=== PATIENT | female | born 1955 | race African-American/Black ===

== ENCOUNTER 2016-12-29 13:33 | Inpatient (IN) | payer MEDICARE, OTHER ==
--- NOTE | ~2016-12-29 | EKG ---
PATIENT: JACOBO JOSHI UNIT #: [id number] Ventricular Rate: 82 BPM Atrial Rate: 82 BPM P-R Interval: 164 ms QRS Duration: 100 ms Q-T Interval: 432 ms QTC Calculation(Bezet): 504 ms P [place]: 34 degrees Calculated R [place]: 30 degrees Calculated T [place]: 7 degrees Diagnosis Line: Normal sinus rhythm Diagnosis Line: Prolonged QT Diagnosis Line: Abnormal ECG Diagnosis Line: When compared with ECG of 30-DEC-2016 07:12, Diagnosis Line: (unconfirmed) Diagnosis Line: No significant change was found Diagnosis Line: Confirmed by TAYE JACOME MD ([id number]) on 12/31/2016 Diagnosis Line: 7:16:25 AM INTERPRETING MD: AYAZ DENT
--- NOTE | ~2016-12-29 | CO ---
Unit #: [id number] #: [id number] Patient: JACOBO CHAVEZ [id number] [facility]. [place], [place] [address] [id number] I MR#: [id number] NAME: JACOBO CHAVEZ ROOM: [facility] Age: 61 Sex: F Admission Date: 12/29/2016 : 1955 Attending Physician: Javier Austin M.D. Primary Care Physician: Norah Ramirez M.D. Consultation Date: 12/30/2016 CONSULTATION REPORT REASON FOR CONSULTATION Renal failure. Thank you very much for asking us to see this patient in consultation. HISTORY OF PRESENT ILLNESS Ms. Jacobo Chavez is a 61-year-old female, who was at dialysis yesterday, and apparently about an hour into dialysis subsequently started having worsening apparently chest pain and subsequently became unresponsive, arrested, was shocked and found to have V-fib, intubated, presented to the emergency room here, where she subsequently is now in the intensive care unit. Since admission, the patient was weaned off pressors. She was noted to have an increased troponin up to 30.54 today. She is now extubated, although she is alert. She started having some intermittent chest pain again this morning. No significant shortness of breath. No nausea or vomiting. According to the note, she was having some chest pain and back pain at home and took intermittent nitroglycerin. PAST MEDICAL HISTORY History of end-stage renal disease, on hemodialysis every Thursday, Thursday, and Thursday. History of atherosclerotic coronary artery disease, status post coronary artery bypass graft in the past. History of COPD, history of GI bleed, history of restless legs syndrome, history of depression, status post cholecystectomy. SOCIAL HISTORY She is . Occasional alcohol. No smoking. ALLERGIES Include sulfa, codeine, amlodipine, atorvastatin, montelukast, and latex. MEDICATIONS Her medicines include Zosyn, propofol, amiodarone, tobramycin, vancomycin, Crestor, aspirin, Plavix, Zosyn, and Protonix. REVIEW OF SYSTEMS Currently, she is not having any headaches or dizziness, visual problems, sinus problems. She is not having any cough, although again recently just extubated. She is having some intermittent left chest heaviness, but no shortness of breath unless the patient have very very deep breath. She denies any severe abdominal pain currently. FAMILY HISTORY Unit #: [id number] #: [id number] Patient: RUTH CHAVEZILA Noncontributory. PHYSICAL EXAMINATION VITAL SIGNS: T-max is 99.6, pulse 51 to 73, blood pressure 205/73, last check was 150/67. She had 1571 in and out 200 through an NG tube initially. HEENT: She is normocephalic and atraumatic. Pupils are equal, round, and reactive to light. Extraocular muscles are intact. Hearing appears to be normal. Mouth is clear. No erythema. No exudate. NECK: Supple. No adenopathy. CARDIAC: She appears to have a regular rhythm without a rub. Currently, no S3 or S4. LUNGS: Sound fairly clear anteriorly and laterally. ABDOMEN: Obese, bowel sounds positive, nontender, soft. EXTREMITIES: She has no significant lower extremity swelling. She has a fistula in her left upper arm with a good thrill. : Deferred. NEURO: She appears to be alert now and is able to move all extremities. DIAGNOSTIC STUDIES LABORATORY RESULTS: Last check showed a pH of 7.471, pCO2 of 34, pO2 of 193 on 60% that was prior to extubation. Sodium is 133 this morning, potassium 4.4, chloride is 95, bicarb is 23, BUN 51, creatinine 9.6, glucose of 110, calcium is 8.5, phosphorus 5.9, magnesium is 2, albumin is 2.9. Liver function tests are elevated. CPK was 754 this morning. Troponin was up to 30.54 up from 10.16 yesterday. Hemoglobin 10.6, white count 8800, and platelets 166,000. IMAGING STUDIES: CT scan of the abdomen and pelvis showed was negative except for questionable pneumonia and trace pleural effusion. ASSESSMENT AND PLAN 1. End-stage renal disease. The patient with normal dialysis on Thursday, Thursday, and Thursday, although only received partial dialysis yesterday due to her active chest pain and questionable acute myocardial infarction, I want to hold off dialysis unless she becomes more short of breath or hypoxic. I have discussed this with the nurse and asked them to give me a call certainly if she becomes more short of breath or hypoxic and then we will dialyze emergently. If not we will dialyze her tomorrow. After heart catheterization, we will follow electrolytes and volume status. 2. Anemia. Hemoglobin is stable. We will give EPO with dialysis. Follow trends. 3. Status post code with acute myocardial infarction per Cardiology. 4. History of chronic obstructive pulmonary disease. Dictated by..Evangelist Bonilla M.D. AVNI/irvin TD: 12/30/2016 23:51 JOB #: [id number] Unit #: [id number] #: [id number] Patient: JACOBO CHAVEZ CONSULTATION REPORT X Brandie Bonilla MD X CONSULTATION REPORT
--- NOTE | ~2016-12-29 | EKG ---
PATIENT: JACOBO JOSHI UNIT #: [id number] Ventricular Rate: 78 BPM Atrial Rate: 78 BPM P-R Interval: 160 ms QRS Duration: 96 ms Q-T Interval: 394 ms QTC Calculation(Bezet): 449 ms P [place]: 21 degrees Calculated R [place]: 15 degrees Calculated T [place]: 107 degrees Diagnosis Line: Normal sinus rhythm Diagnosis Line: Moderate voltage criteria for LVH, may be normal Diagnosis Line: variant Diagnosis Line: Cannot rule out Inferior infarct (cited on or Diagnosis Line: before 31-DEC-2016) Diagnosis Line: ST and T wave abnormality, consider lateral ischemia Diagnosis Line: Abnormal ECG Diagnosis Line: When compared with ECG of 01-JAN-2017 07:40, Diagnosis Line: (unconfirmed) Diagnosis Line: No significant change was found Diagnosis Line: Confirmed by TAYE JACOME MD ([id number]) on 01/02/2017 Diagnosis Line: 6:25:40 PM INTERPRETING MD: AYAZ DENT
--- NOTE | ~2016-12-29 | EKG ---
PATIENT: JACOBO JOSHI UNIT #: [id number] Ventricular Rate: 75 BPM Atrial Rate: 75 BPM P-R Interval: 164 ms QRS Duration: 100 ms Q-T Interval: 454 ms QTC Calculation(Bezet): 506 ms P [place]: 11 degrees Calculated R [place]: 36 degrees Calculated T [place]: 6 degrees Diagnosis Line: Normal sinus rhythm Diagnosis Line: , old Inferior infarct Diagnosis Line: Abnormal ECG Diagnosis Line: Diagnosis Line: Confirmed by TAYE JACOME MD ([id number]) on 12/31/2016 Diagnosis Line: 7:15:13 AM INTERPRETING MD: AYAZ DENT
--- NOTE | ~2016-12-29 | CR6 ---
[facility] A Service of [facility] & [facility] RADIOLOGY TEXT RESULTS PATIENT: JACOBO JOSHI [facility] 53 UNIT #: [id number] AGE: [address]: Javier Austin MD SEX: F ORDER DR: [id number] [facility] [address] [facility]. [place], [place] [address] [id number] I MR#: [id number] Acc #: [id number] NAME: JACOBO JOSHI : 1955 SEX: F STUDY DATE/TIME: 12/29/2016 12:15 UNIT: CEDOF ROOM: [id number] STUDY DESCRIPTION: CR Abdomen Portable Sng View Attending Physician: Amy Maldonado M.D. Ordering Physician: Malia Veronica M.D. Primary Care Physician: Norah Ramirez M.D. MEDICAL IMAGING REPORT This report is preliminary unless electronic signature is present EXAM Abdomen portable 12/29/2016 1215 hours HISTORY Dobbhoff tube placement. FINDINGS Supine view of the abdomen with a second view is performed at 1215 hours but not placed on the PACS System for review until 1338 hours. Reason for the delay is not indicated. There is an enteric tube present with tip directed leftward in the left upper quadrant in the proximal body of the stomach. Visualized bowel gas pattern is unremarkable. IMPRESSION The tip of the enteric tube is directed leftward in the left upper quadrant of the proximal stomach. Bowel gas pattern is unremarkable. Dictated by... Bing Gold M.D. THIS IS AN ELECTRONICALLY VERIFIED REPORT Bing Gold M.D. at 12/30/2016 9:26 AM GRAEME/leora TD: 12/29/2016 20:28 JOB #: [id number] MEDICAL IMAGING REPORT COPY
--- NOTE | ~2016-12-29 | EKG ---
PATIENT: JACOBO JOSHI UNIT #: [id number] Ventricular Rate: 52 BPM Atrial Rate: 52 BPM P-R Interval: 176 ms QRS Duration: 114 ms Q-T Interval: 554 ms QTC Calculation(Bezet): 515 ms P [place]: 15 degrees Calculated R [place]: 25 degrees Calculated T [place]: 48 degrees Diagnosis Line: Sinus bradycardia Diagnosis Line: Minimal voltage criteria for LVH, may be normal Diagnosis Line: variant Diagnosis Line: Possible Inferior infarct , age undetermined Diagnosis Line: Prolonged QT Diagnosis Line: Abnormal ECG Diagnosis Line: When compared with ECG of 29-DEC-2016 09:00, Diagnosis Line: (unconfirmed) Diagnosis Line: Significant changes have occurred Diagnosis Line: Confirmed by TAYE JACOME MD ([id number]) on 12/29/2016 Diagnosis Line: 7:36:11 PM INTERPRETING MD: AYAZ DENT
--- NOTE | ~2016-12-29 | EKG ---
PATIENT: JACOBO JOSHI UNIT #: [id number] Ventricular Rate: 80 BPM Atrial Rate: 80 BPM P-R Interval: 156 ms QRS Duration: 94 ms Q-T Interval: 430 ms QTC Calculation(Bezet): 495 ms P [place]: 31 degrees Calculated R [place]: 8 degrees Calculated T [place]: 66 degrees Diagnosis Line: Normal sinus rhythm Diagnosis Line: Moderate voltage criteria for LVH, may be normal Diagnosis Line: variant Diagnosis Line: Possible Inferior infarct , age undetermined Diagnosis Line: Abnormal ECG Diagnosis Line: When compared with ECG of 31-DEC-2016 05:49, Diagnosis Line: Borderline criteria for Inferior infarct are now Diagnosis Line: Present Diagnosis Line: T wave inversion now evident in Lateral leads Diagnosis Line: Confirmed by TAYE JACOME MD ([id number]) on 01/02/2017 Diagnosis Line: 6:24:45 PM INTERPRETING MD: AYAZ DENT
--- NOTE | ~2016-12-29 | EKG ---
PATIENT: JACOBO JOSHI UNIT #: [id number] Ventricular Rate: 77 BPM Atrial Rate: 77 BPM P-R Interval: 160 ms QRS Duration: 104 ms Q-T Interval: 438 ms QTC Calculation(Bezet): 495 ms P [place]: 28 degrees Calculated R [place]: 15 degrees Calculated T [place]: 22 degrees Diagnosis Line: Normal sinus rhythm Diagnosis Line: Minimal voltage criteria for LVH, may be normal Diagnosis Line: variant Diagnosis Line: , old Inferior infarct Diagnosis Line: Prolonged QT Diagnosis Line: Abnormal ECG Diagnosis Line: When compared with ECG of 30-DEC-2016 08:47, Diagnosis Line: (unconfirmed) Diagnosis Line: No significant change was found Diagnosis Line: Confirmed by TAYE JACOME MD ([id number]) on 12/31/2016 Diagnosis Line: 7:19:15 AM INTERPRETING MD: AYAZ DENT
--- NOTE | ~2016-12-29 | CR72 ---
[facility] A Service of [facility] & [facility] RADIOLOGY TEXT RESULTS PATIENT: JACOBO JOSHI LOCATION: [address] : [birth year] UNIT #: [id number] AGE: [address]: Javier Austin MD SEX: F ORDER DR: [id number] [facility] [address] [place], [place] [address] [id number] I MR#: [id number] Acc #: [id number] NAME: JACOBO JOSHI : 1955 SEX: F STUDY DATE/TIME: 12/30/2016 6:14 UNIT: [facility] ROOM: [facility] STUDY DESCRIPTION: CR Chest Single View Portable Attending Physician: Javier Austin M.D. Ordering Physician: Azra Rollins M.D. Primary Care Physician: Norah Ramirez M.D. MEDICAL IMAGING REPORT This report is preliminary unless electronic signature is present EXAM Portable chest 12/30/2016 HISTORY Respiratory failure, intubated, follow up infiltrates. FINDINGS The heart is enlarged but stable compared with 12/29/2016 status post median sternotomy. Nasogastric tube has been inserted with tip below the diaphragm not visualized. There is poor inspiratory result with atelectasis or infiltrate in the left lower lobe and discoid atelectasis right base. The upper lungs are clear. No pneumothorax. IMPRESSION Interval placement of nasogastric tube with tip below the diaphragm not visualized compared with 12/29/2016. No other change. Dictated by... Dawood Suarez M.D. THIS IS AN ELECTRONICALLY VERIFIED REPORT Dawood Suarez M.D. at 12/31/2016 2:24 PM KRT/sarai TD: 12/30/2016 11:15 JOB #: [id number] MEDICAL IMAGING REPORT COPY
--- NOTE | ~2016-12-29 | CT4 ---
[facility] A Service of [facility] & [facility] RADIOLOGY TEXT RESULTS PATIENT: JACOBO JOSHI LOCATION: [facility] CICCU3-14 : 53 UNIT #: [id number] AGE: [address]: Amy Maldonado MD SEX: F ORDER DR: [id number] [facility] [address] [place], [place] [address] [id number] I MR#: [id number] Acc #: [id number] NAME: JACOBO JOSHI : 1955 SEX: F STUDY DATE/TIME: 12/29/2016 12:54 UNIT: CEDOF ROOM: [id number] STUDY DESCRIPTION: CT Abd and Pelv Wo Cont Attending Physician: Amy Maldonado M.D. Ordering Physician: Malia Veronica M.D. Primary Care Physician: Norah Ramirez M.D. MEDICAL IMAGING REPORT This report is preliminary unless electronic signature is present EXAM Abdomen and pelvis CT, no contrast, 12/29/2016 INDICATIONS 61-year-old female resuscitated arrest from a dialysis center today, patient became unresponsive and coded at the dialysis site. TECHNIQUE Noncontrast abdomen and pelvis CT was performed. We have no comparisons. This CT exam was performed with one or more of the following radiation dose reduction techniques: Automatic exposure control, adjustment of mA and/or kV according to patient size, and iterative reconstruction. FINDINGS CT ABDOMEN: Included lung bases demonstrate a trace amount of pleural fluid bilaterally and bibasilar atelectasis or pneumonia, correlate clinically. The heart is enlarged. No pneumothorax. There is cardiomegaly and advanced atherosclerotic change of the coronary arteries. Coronary artery stents may also be present. There is an enteric tube in the stomach. Aorta demonstrates atherosclerotic change but no aneurysm. Spleen and adrenal glands are unremarkable, pancreas unremarkable, gallbladder surgically absent, liver unremarkable. Kidneys are atrophic and demonstrate cortical thinning. No hydronephrosis on either side. There is a benign cyst in the mid-pole left kidney. No adenopathy. CT PELVIS: Bladder decompressed by a George catheter. Uterus surgically absent. There are vascular calcifications in the pelvis, no adnexal mass or drainable fluid collection. There is colonic diverticulosis. No evidence of bowel obstruction, appendix normal. Inguinal canals are unremarkable. There is a right-sided femoral line. There is a tiny anterior abdominal wall hernia containing fat and omental vessels. Osseous structures demonstrate spinal degenerative changes. [facility] A Service of [facility] & [facility] RADIOLOGY TEXT RESULTS PATIENT: JACOBO JOSHI LOCATION: [facility] CICCU3-14 : 54 UNIT #: [id number] AGE: [address]: Amy Maldonado MD SEX: F ORDER DR: IMPRESSION 1. No clearly acute process in the abdomen or pelvis, no bowel obstruction, drainable fluid collection or focal area of inflammatory change and the appendix is normal. 2. Bibasilar atelectasis or pneumonia, trace to small effusions. 3. Surgical absence of the gallbladder. 4. Renal atrophy and an incidental benign left renal cyst. 5. Diverticulosis. Dictated by... Shiv Saenz M.D. THIS IS AN ELECTRONICALLY VERIFIED REPORT Shiv Saenz M.D. at 12/30/2016 7:19 AM JASMYNE/leora TD: 12/29/2016 20:03 JOB #: [id number] MEDICAL IMAGING REPORT COPY
--- NOTE | ~2016-12-29 | CT71 ---
[facility] A Service of [facility] RADIOLOGY TEXT RESULTS PATIENT: JACOBO JOSHI LOCATION: [address] : 53 UNIT #: [id number] AGE: [address]: Javier Austin MD SEX: F ORDER DR: [id number] [facility] [address] [place], [place] [address] [id number] I MR#: [id number] Acc #: [id number] NAME: JACOBO JOSHI : 1955 SEX: F STUDY DATE/TIME: 12/29/2016 12:47 UNIT: [facility] ROOM: [facility] STUDY DESCRIPTION: CT Head Wo Contrast Attending Physician: Amy Maldonado M.D. Ordering Physician: Malia Veronica M.D. Primary Care Physician: Norah Ramirez M.D. MEDICAL IMAGING REPORT This report is preliminary unless electronic signature is present EXAM Head CT no contrast 12/29/2016 INDICATIONS 61-year-old female, resuscitated arrest from dialysis center today, unresponsive and coded at dialysis. TECHNIQUE Noncontrast CT of the brain was performed. This CT exam was performed with one or more of the following radiation dose reduction techniques: Automatic exposure control, adjustment of mA and/or kV according to patient size, and iterative reconstruction. COMPARISON No comparisons. FINDINGS CT brain: Sulci and ventricles unremarkable. No midline shift. No evidence of acute intracranial hemorrhage. There is no mass, mass effect or edema to suggest acute infarct. No extraaxial fluid collections are present. Mild periventricular white matter and deep white matter changes are present and likely reflect sequela of chronic ischemic small vessel disease although they are technically nonspecific. Globes are intact. There is mild sphenoid and ethmoid sinus disease. No acute-appearing fracture. Atherosclerotic calcifications are present. Incidental note is made of what probably represents incomplete closure of the posterior ring of C1 as an anatomic variant. It is incompletely included in the field of view. IMPRESSION 1. No clearly acute intracranial process. No evidence of acute intracranial hemorrhage. [facility] A Service of [facility] RADIOLOGY TEXT RESULTS PATIENT: JACOBO JOSHI LOCATION: [facility]-14 : 53 UNIT #: [id number] AGE: [address]: Javier Austin MD SEX: F ORDER DR: 2. Imaging features suggestive of chronic ischemic small vessel disease. 3. Multifocal sinus disease. 4. Probable incomplete closure of the posterior ring of C1 as anatomic variant. This is incompletely evaluated or included in the field of view. Dictated by... Shiv Saenz M.D. THIS IS AN ELECTRONICALLY VERIFIED REPORT Shiv Saenz M.D. at 12/30/2016 4:43 PM Corrie TD: 12/30/2016 07:40 JOB #: [id number] MEDICAL IMAGING REPORT COPY
--- NOTE | ~2016-12-29 | CO ---
Unit #: [id number] #: [id number] Patient: JACOBO JOSHI [id number] [facility]. [place], [place] [address] [id number] I MR#: [id number] NAME: JACOBO JOSHI ROOM: [facility] Age: 61 Sex: F Admission Date: 12/29/2016 : 1955 Attending Physician: Javier Austin M.D. Primary Care Physician: Norah Ramirez M.D. Consultation Date: 12/29/2016 CONSULTATION REPORT REASON FOR CONSULTATION Elevated troponin. HISTORY OF PRESENT ILLNESS This is a 61-year-old female, who is known to , who has a history of myocardial infarction in 2012, where she underwent coronary artery bypass graft per at [facility]. She is known to have hypertension, hyperlipidemia, diabetes, and obesity as risk factors for ischemic heart disease. The patient is currently intubated and sedated and is unable to provide a history. All information has been obtained from the and daughter at bedside. According to the , the patient had chest pain last night, where she was up and down all night. This morning, she went to dialysis. After an hour of dialysis, the patient had ventricular fibrillation and was shocked three times with a return of spontaneous circulation. She was intubated in the process. She was brought to the emergency room for evaluation, where she was found to have no EKG changes to suggest an acute event; however, her troponin was elevated at 4.07 that is now peaked at 7.57. Chest x-ray was noted for pulmonary edema. She was hypotensive with blood pressure in the 50s and 60s and was started on Levophed drip. LFTs are elevated as well as lactic acid. She is on IV antibiotics. PAST MEDICAL HISTORY 1. 2D echocardiogram on 05/29/2015 per records from [facility], ejection fraction of 55% to 60% with mild aortic regurgitation, trace mitral regurgitation, and trace tricuspid regurgitation. 2. Coronary artery bypass graft x5 on 03/14/2013 per with RIVAS to the LAD, saphenous vein graft to the diagonal and saphenous vein graft to the first marginal branch, saphenous vein graft to the second marginal branch, and saphenous vein graft to the right coronary artery. 3. Hypertension. 4. Hyperlipidemia. 5. COPD. 6. Obstructive sleep apnea, wears CPAP. 7. End-stage renal disease, on hemodialysis. 8. GERD. 9. Gout. 10. Morbid obesity. PAST SURGICAL HISTORY 1. Coronary artery bypass graft in 2012. Unit #: [id number] #: [id number] Patient: JACOBO JOSHI 2. Cholecystectomy. 3. Hysterectomy. 4. Tubal ligation. 5. AV shunt placement. SOCIAL HISTORY The patient is . She has never smoked. No history of illicit drug or alcohol use. FAMILY HISTORY Positive for coronary artery disease in her mother. ALLERGIES Sulfa, latex, codeine, amlodipine, atorvastatin, and Singulair. HOME MEDICATIONS Losartan 100 mg daily, albuterol 1 puff q.4 hours p.r.n., Combivent unit dose one puff q.4 hours p.r.n., lactic acid 225 gtopically daily, Plavix 75 mg daily, Lexapro 20 mg daily, Pepcid 20 mg daily, Imdur 30 mg daily, Sensipar 60 mg daily. REVIEW OF SYSTEMS Unable to obtain, because the patient is currently intubated and sedated. PHYSICAL EXAMINATION VITAL SIGNS: Blood pressure 104/55, heart rate 52, temperature 98.0. GENERAL: This is an obese 61-year-old female, who is currently intubated and sedated. NEUROLOGIC: She is moving all extremities. Eyes opened to name. NECK: Trachea is midline. No thyromegaly or lymphadenopathy. No jugular venous distention. HEART: S1 and S2. Heart sounds are normal. No murmurs. No rubs or clicks. Regular rate and rhythm. LUNGS: With crackles in both lung bases with diminished breath sounds in both lungs. ABDOMEN: Soft and obese with bowel sounds present. No organomegaly. EXTREMITIES: With trace bilateral lower extremity edema. DIAGNOSTIC STUDIES LABORATORY RESULTS: Hemoglobin 12.9, hematocrit 40.2, platelet count 236, white count 5.6. Sodium 135, potassium 4.1, BUN 36, creatinine 7.8, glucose 130. AST 521, ALT 560. Troponin 4.07 to 7.57. Lactic acid 4.0. IMAGING STUDIES: Chest x-ray noted for pulmonary edema and cardiomegaly. CARDIOVASCULAR STUDIES: EKG; sinus tachycardia with a rate of 123 beats per minute with left ventricular hypertrophy. Repeat EKG; sinus bradycardia rate of 32 beats per minute with old inferior infarct. IMPRESSION 1. Resuscitated ventricular fibrillation arrest. 2. Acute respiratory failure. 3. Pulmonary edema. 4. Acute non-ST elevation myocardial infarction with peak troponin of 7.57. 5. History of myocardial infarction, status post coronary artery bypass Unit #: [id number] #: [id number] Patient: JACOBO JOSHI graft x5 in 2014. 6. Hypotension. 7. End-stage renal disease, on hemodialysis. 8. Elevated LFTs. 9. Elevated lactic acid, rule out sepsis. PLAN 1. Cardiology was consulted for elevated troponin. Elevated troponin reflects acute myocardial infarction given multiple risk factors and history of coronary artery disease and DE in the past. We will start the patient on heparin drip, aspirin, and Plavix. 2. No beta-jose secondary to hypotension. 3. Continue vasoactive support with Levophed. 4. Continue IV amiodarone drip to prevent arrhythmias. 5. We will start on statin. Lipid profile will be obtained. 6. The patient will need a cardiac catheterization prior to discharge. 7. Preliminary echocardiogram shows inferobasal hypokinesis. 8. We will follow the patient with you. Thank you for allowing us to assist in this patient's care. Dictated by... Arcadio Lu A.P.R.N. for Krish Ackerman/irvin TD: 12/30/2016 20:58 JOB #: [id number] CONSULTATION REPORT X Arcadio Lu APRN X CONSULTATION REPORT
--- NOTE | ~2016-12-29 | HP ---
Unit #: [id number] #: [id number] Patient: JACOBO JOSHI [id number] [facility]. [place], [place] [address] [id number] I MR#: [id number] NAME: JACOBO JOSHI ROOM: 02649 Age: 61 Sex: F Admission Date: 12/29/2016 : 1955 Attending Physician: Amy Maldonado M.D. Primary Care Physician: Norah Ramirez M.D. HISTORY AND PHYSICAL CHIEF COMPLAINT Resuscitated arrest. HISTORY OF PRESENT ILLNESS The patient is a 61-year-old female with a past medical history of end-stage renal disease, on dialysis, coronary artery disease, COPD, GI bleed, restless leg syndrome, and depression, who presented to the emergency department from dialysis for evaluation of the above. History is obtained from chart review and discussion with ER staff due to the patient currently being intubated and sedated. I also spoke with the patient's and other family members who are at the bedside. The patient was apparently not feeling well on the evening prior to admission. She was complaining of chest pain and back pain. She apparently took nitroglycerin, used her inhaler, and also tried Tums with minimal relief of symptoms. This morning her states that she was feeling a little better. She went to dialysis. She was a witnessed arrest. EMS was called. She was noted to be in ventricular fibrillation. She received a total of three defibrillations with return of spontaneous circulation within about 10 minutes. She was brought to the emergency department for further evaluation. On arrival in the emergency department, the patient's temperature 97.7, pulse 127, and respirations 14. She was intubated. EKG showed possible ST depression and was apparently reviewed by Dr. Leggett. Initial troponin is 4.07. She is currently on amiodarone drip, as well as Levophed. Chest x-ray shows bilateral airspace changes with mild to moderate cardiomegaly. CT of the head shows nothing acute. CT of the abdomen and pelvis shows bibasilar atelectasis versus infiltrates. She is being admitted to [facility] for evaluation and further treatment. Of note, the patient prior to intubation in the emergency department was opening her eyes and moving extremities. She was not following commands. PAST MEDICAL HISTORY 1. The patient has not been hospitalized within the past year. She maybe was hospitalized last at [facility] again, more than one year ago. 2. End-stage renal disease, on dialysis Thursday, Thursday, and Thursday at [facility]. 3. Coronary artery disease, status post coronary artery bypass grafting. 4. Possible congestive heart failure. 5. Gastrointestinal bleed. 6. Restless leg syndrome. Unit #: [id number] #: [id number] Patient: JACOBO JOSHI 7. Depression. 8. Chronic obstructive pulmonary disease, not on home oxygen. PAST SURGICAL HISTORY 1. Coronary artery bypass grafting. 2. Fistula for dialysis. 3. Cholecystectomy. SOCIAL HISTORY The patient lives with her . She occasional drinks alcohol. There is no tobacco use. She walks without assistance. Her code status is a Full Code. FAMILY HISTORY Notable for both parents being healthy per the patient's . There is no history of diabetes. ALLERGIES SULFA, CODEINE, AMLODIPINE, ATORVASTATIN, MONTELUKAST, LATEX. HOME MEDICATIONS 1. Cozaar. 2. Ventolin. 3. Combivent. 4. Lac-Hydrin lotion. 5. Plavix. 6. Lexapro. 7. Pepcid. 8. Imdur. 9. Sensipar. REVIEW OF SYSTEMS A complete review of systems is unobtainable from the patient but negative except as indicated in the History of Present Illness per the patient's . PHYSICAL EXAMINATION VITAL SIGNS: Temperature 97.7, pulse 127, respirations 14, and blood pressure 209/129 and most recently 111/54. GENERAL: Patient is an female who is sedated and intubated. HEENT: Head is atraumatic. Mucous membranes are moist. NECK: Supple. Trachea is midline. CARDIOVASCULAR: Regular rate and rhythm. LUNGS: Scattered crackles and rhonchi. She is currently intubated. ABDOMEN: Obese and soft with bowel sounds present in all four quadrants. EXTREMITIES: No pedal edema. NEUROLOGIC: Patient is currently sedated. She was apparently opening her eyes and moving all extremities prior to intubation and sedation. PSYCHIATRIC: Unable to assess. SKIN: Skin of examined areas is warm and dry. DIAGNOSTIC STUDIES LABORATORY: Troponin is 4.07. Arterial blood gas shows a pH of 7.357, PCO2 of 44.7, and PO2 of 216 on assist control with an FIO2 of 100%. Lactic acid is 4.1. INR is 1. Comprehensive metabolic panel notable for chloride of 94, glucose 130, BUN and creatinine 36 and 7.8, respectively, AST and ALT 521 and 560, respectively, and alkaline phosphatase is 140. Unit #: [id number] #: [id number] Patient: JACOBO JOSHI Alcohol is 9. Complete blood count essentially normal. IMAGING: CT of the head shows nothing acute. CT of the abdomen and pelvis shows bibasilar atelectasis versus pneumonia. Chest x-ray shows bilateral airspace changes and mild to moderate cardiomegaly. CARDIOLOGY: EKG shows sinus tachycardia with what looks to be ST depression in lead V2 and possibly V3 and AVF. EKG was apparently reviewed by Dr. Leggett. ASSESSMENT The patient is a 61-year-old female with: 1. Resuscitated arrest. The patient was noted to be in ventricular fibrillation. She received three defibrillations with return of spontaneous circulation within 10 minutes. She is currently on amiodarone drip, as well as Levophed. 2. Non-ST elevation myocardial infarction with a troponin of 4.07. 3. End-stage renal disease, on dialysis, followed by [facility]. The patient receives dialysis Thursday, Thursday, and Thursday. She has minimal urine output at baseline. 4. Possible history of congestive heart failure. 5. Possible pneumonia, healthcare associated. 6. Coronary artery disease, status post coronary artery bypass grafting. 7. Chronic obstructive pulmonary disease. 8. History of gastrointestinal bleed. 9. Restless leg syndrome. 10. Depression. 11. Transaminitis possibly secondary to passive congestion from heart failure. There are no baseline liver function tests for comparison. PLAN 1. Admit to ICU. 2. N.p.o. 3. Consult Dr. Leggett regarding resuscitated arrest and non-ST elevation myocardial infarction. 4. Serial cardiac enzymes. 5. Fasting lipid panel. 6. Continue amiodarone drip. 7. A 2D echo. 8. Strict I/Os. 9. TSH. 10. Consult Dr. Bonilla regarding end-stage renal disease. 11. DuoNebs. 12. Blood cultures x2. 13. Sputum culture and sensitivity. 14. Procalcitonin level. 15. Vancomycin, Zosyn, and tobramycin IV for possible healthcare-associated pneumonia pending further workup. 16. Get records from [facility]. 17. Consult Dr. Azra Rollins regarding ICU admission and vent management. 18. SCDs for DVT prophylaxis. 19. Protonix for GI prophylaxis. 20. Repeat labs in the morning. 21. Additional workup and consultants based on above. 22. Regarding code status, the patient is a Full Code. Thirty-eight (38) minutes critical care time spent in the care of this patient (1:40-2:18 p.m.). Unit #: [id number] #: [id number] Patient: JACOBO JOSHI Dictated by Krish Dumont/xenia TD: 12/29/2016 14:48 JOB #: [id number] HISTORY AND PHYSICAL X Amy Maldonado MD X HISTORY AND PHYSICAL
--- NOTE | ~2016-12-29 | OR ---
Unit #: [id number] #: [id number] Patient: JACOBO JOSHI [id number] [address] [place], [place] [address] [id number] I MR#: [id number] NAME: JACOBO JOSHI ROOM: [facility] Date of Procedure: 12/29/2016 Admission Date: 12/29/2016 Surgeon: Otoniel Rollins M.D. : 1955 Attending Physician: Amy Maldonado M.D. Primary Care Physician: Norah Ramirez M.D. PROCEDURE OPERATIVE NOTE PROCEDURE PERFORMED Right femoral (1) central line placement with ultrasound guidance. INDICATIONS FOR PROCEDURE Status post cardiac arrest. DESCRIPTION OF PROCEDURE An informed consent was obtained from the family after explaining the benefits and risks of this procedure. Patient was prepped and positioned in proper way and then the right groin was cleaned with chlorhexidine. Then, with the ultrasound guidance, a needle was inserted in the right femoral vein until blood flow was obtained. Then, a guidewire was inserted and the needle was removed. A dilator was used to create the tract and then the catheter was inserted over the guidewire and the guidewire was removed eventually. Patient tolerated her procedure well with no immediate complications. Dictated by... Krish Metz TD: 12/30/2016 06:36 JOB #: [id number] PROCEDURE OPERATIVE NOTE X OTONIEL CARBONE MD PROCEDURE OPERATIVE NOTE
--- NOTE | ~2016-12-29 | CR72 ---
[facility] A Service of [facility] RADIOLOGY TEXT RESULTS PATIENT: JACOBO JOSHI LOCATION: CICCU3 CICCU3-14 : 53 UNIT #: [id number] AGE: [address]: Javier Austin MD SEX: F ORDER DR: [id number] [facility] [address] [facility]. [place], [place] [address] [id number] I MR#: [id number] Acc #: [id number] NAME: JACOBO JOSHI : 1955 SEX: F STUDY DATE/TIME: 12/29/2016 12:06 UNIT: CEDOF ROOM: 21824 STUDY DESCRIPTION: CR Chest Single View Portable Attending Physician: Amy Maldonado M.D. Ordering Physician: Azra Rollins M.D. Primary Care Physician: Norah Ramirez M.D. MEDICAL IMAGING REPORT This report is preliminary unless electronic signature is present EXAM Chest portable, 12/29/2016 12:06 hours HISTORY Attempted right IJ central line placement without success. Evaluate for pneumothorax. COMPARISON 12/29/2016 09:30 hours FINDINGS Single upright portable view demonstrates stable positioning of endotracheal tube. No central line is seen. There is no pneumothorax. Patchy bilateral perihilar changes appear slightly improved. No effusion seen. IMPRESSION 1. Stable endotracheal tube. No central line is seen. There is no pneumothorax. 2. Slight interval improvement in perihilar air space changes since 09:30 hours this morning. Dictated by... Bing Gold M.D. THIS IS AN ELECTRONICALLY VERIFIED REPORT Bing Gold M.D. at 12/30/2016 9:26 AM GRAEME/ina TD: 12/29/2016 20:17 JOB #: [id number] [facility] A Service of [facility] RADIOLOGY TEXT RESULTS PATIENT: JACOBO JOSHI LOCATION: CICCUHerminia CICCU3-14 : 53 UNIT #: [id number] AGE: [address]: Javier Austin MD SEX: F ORDER DR: MEDICAL IMAGING REPORT COPY
--- NOTE | ~2016-12-29 | DS ---
Unit #: [id number] #: [id number] Patient: JACOBO JOSHI [id number] [facility] [address] [facility]. [place], [place] [address] [id number] I MR#: [id number] NAME: JACOBO JOSHI ROOM: 558 Age: 61 Sex: F Admission Date: 12/29/2016 : 1955 Discharge Date: 01/05/2017 Attending Physician: Javier Austin M.D. Primary Care Physician: Norah Ramirez M.D. DISCHARGE SUMMARY CONSULTANTS 1. Dr. Afshan Benjamin/Dr. Leggett. 2. Dr. Rodger Bonilla. 3. Dr. Meliton Rollins/Dr. Messina. ADMITTING DIAGNOSES 1. Status post cardiac arrest. 2. Endstage renal disease, on hemodialysis. 3. Hypertension. 4. Depression. 5. Restless leg syndrome. 6. Coronary artery disease status post coronary artery bypass graft. 7. Non-ST elevation myocardial infarction. PROCEDURES DONE Cardiac cath and angioplasty with drug-eluting stent distal to the surgical graft to PDA on January 02, 2017. HISTORY OF PRESENT ILLNESS The patient is a 61-year-old lady who was undergoing dialysis on the . Was brought to the emergency room (1) cardiac arrest. She was undergoing hemodialysis, and at that time she was noted to have V fib on the monitor. She was given 3 defibrillations, and she had spontaneous circulation within 10 minutes. For further care, she was transferred to the emergency room. HOSPITAL COURSE In the hospital course she was initially intubated in the ICU. She had a cardiac cath done, and she had stenosis and drug-eluting stent was placed on the . In spite of the stent she was having episodes of VT. For further evaluation, cardiology recommended that the patient needs an EP study, and for further management, the patient is getting transferred to [facility]. Dr. Bonilla helped us with dialysis requirements. In the hospital course, Dr. Rollins helped us with the ICU management. She is currently undergoing dialysis. She gets dialysis on Thursday, Thursday and Thursday. She will be transferred to Dr. Messer's service for further care, and Dr. Lerma of EP cardiology was informed about the patient, and he will be taking care of the EP study tomorrow. PHYSICAL EXAMINATION ON THE DAY OF DISCHARGE VITAL SIGNS: Temperature 98.5, pulse rate 72, respiratory rate 18, blood pressure 121/67. Unit #: [id number] #: [id number] Patient: JACOBO JOSHI GENERAL: The patient is alert and oriented x3, obese. HEENT: Normocephalic, atraumatic. No icterus. PERRLA. Extraocular muscles are intact. NECK: Supple. No JVD. HEART: S1, S2. Regular rate and rhythm. CHEST: Bilateral equal air entry. Clear to auscultation. ABDOMEN: Soft, nontender. EXTREMITIES: No edema. Normal pulses. DISCHARGE MEDICATIONS 1. Albuterol 1 puff q.4 p.r.n. shortness of breath. 2. Amiodarone 200 mg q.24. 3. Lexapro 20 mg daily. 4. Nystatin 5 mL swish and swallow. 5. Zetia 10 mg p.o. daily. 6. Ambien 5 mg at bedtime. 7. Lactic acid (Lac-Hydrin lotion) 225 grams to be applied topically daily. 8. Metoprolol 25 mg p.o. q.12. 9. Epogen 10,000 units every Thursday on dialysis. 10. Crestor 40 mg in the evening. 11. Pepcid 20 mg daily. 12. Sensipar 60 mg daily. 13. Aspirin 81 mg daily. 14. Percocet 5/325 mg 1-2 tabs p.o. q.4 p.r.n. "shortness of breath." 15. Renvela 1,600 mg p.o. t.i.d. 16. Brilinta 90 mg b.i.d. 17. Protonix 40 mg daily. 18. Nitroglycerin 0.4 mg sublingual q.5 minutes p.r.n. chest pain. PLAN The patient will be transferred to [facility] under Dr. Messer's service/HIPS service for further care. NOTE: Total time spent in her care - 35 minutes. Dictated by... Krish Palacio/yessenia TD: 01/05/2017 15:43 JOB #: [id number] DISCHARGE SUMMARY X X DISCHARGE SUMMARY
--- NOTE | ~2016-12-29 | CO ---
Unit #: [id number] #: [id number] Patient: JACOBO JOSHI [id number] [address] [place], [place] [address] [id number] I MR#: [id number] NAME: JACOBO JOSHI ROOM: [facility] Age: 61 Sex: F Admission Date: 12/29/2016 : 1955 Attending Physician: Amy Maldonado M.D. Primary Care Physician: Norah Ramirez M.D. Consultation Date: 12/29/2016 CONSULTATION REPORT REASON FOR CONSULTATION ICU management. HISTORY OF PRESENT ILLNESS This is a 61-year-old Aggie-[place] female with a past medical history significant for end stage renal disease on dialysis, coronary artery disease, COPD, GI bleed, restless leg syndrome who presented to the emergency room for dialysis and therefore, evaluation of resuscitated cardiac arrest. The patient wasn't feeling well for the last couple of nights and she was complaining of chest and back pain. She apparently took some nitroglycerin and used her inhaler with also Tums but unfortunately she had minimal relief to her symptom. This morning the patient was feeling slightly better and she went to dialysis; however, while she was there the patient went in sudden cardiac arrest. When EMS arrived, they noted that the patient was in V fib. The patient was shocked three times with return of spontaneous circulation within about 10 minutes. Upon presentation to the ER the patient was moving all her extremities and she was not a candidate of hypothermia protocol. REVIEW OF SYSTEMS Unable to obtain. PAST MEDICAL HISTORY 1. End stage renal disease. 2. Coronary artery disease. 3. Congestive heart failure. 4. History of GI bleed. 5. Restless leg syndrome. 6. Depression. 7. COPD. PAST SURGICAL HISTORY 1. CABG. 2. Fistula for dialysis. 3. Cholecystectomy. SOCIAL HISTORY The patient lives with her . She occasionally drinks alcohol. There is no history of tobacco abuse. She walked without assistance. Her code status is full code. FAMILY HISTORY Overall her family is in good health. Unit #: [id number] #: [id number] Patient: JACOBO JOSHI HOME MEDICATIONS 1. Cozaar. 2. Combivent. 3. Plavix. 4. Lexapro. 5. Imdur. 6. Pepcid. PHYSICAL EXAMINATION GENERAL: The patient is restless on the vents, trying to move all her extremities. HEENT: Head atraumatic and normocephalic. EOMI. NECK: Supple. No JVD. No lymphadenopathy. CHEST: Decreased breath sounds with bilateral rhonchi and scattered wheezing. HEART: S1 and S2. No murmur, gallop or rubs. ABDOMEN: Soft, nontender. Bowel sound is positive. No hepatosplenomegaly. EXTREMITIES: No edema or cyanosis. SKIN: No rashes. RISK ASSESSMENT ANALYST: Patient currently sedated on the vent; however, she opened her eyes to verbal stimuli and she is moving all extremities spontaneously. DIAGNOSTIC STUDIES LABS AND OTHER TESTS: Creatinine 7.8, sodium 135, AST 51, white blood count 5.7. IMAGING STUDIES: Consistent with pulmonary edema. ASSESSMENT 1. Acute hypoxic respiratory failure. 2. Status post V-tach cardiac arrest. 3. End stage renal disease. 4. Non ST elevation NC. 5. COPD. 6. History of GI bleed. PLAN 1. Patient is critical. Will continue vent support and wean as tolerated. 2. Patient is a candidate for hypothermia protocol and neurologically she is better at this point. 3. Broad spectrum antibiotics; however, likely would be able to de-escalate once all cultures are final. 4. Emergent hemodialysis per renal. 5. Cardiac eval. Patient currently is on amiodarone drip. 6. Will start tube feed and free water in the morning. 7. DVT/GI prophylaxis. 8. Critical care time spent on this patient was 40 minutes. Dictated by... Krish Metz TD: 12/30/2016 07:02 Unit #: [id number] #: [id number] Patient: JACOBO JOSHI JOB #: [id number] CONSULTATION REPORT X OTONIEL CARBONE MD CONSULTATION REPORT
--- NOTE | ~2016-12-29 | BMI ---
[facility] Nutrition Therapy DATE: 01/02/17 Patient: JACOBO JOSHI Physician: RALPH Address: [address] Room/Bed: [address], Zip: [place] [address] Admit Date: 12/29/16 Date of : 53 Height: 5 4 Weight: 250 113.5 HIGH BMI NOTE: DX: 61 YO FEMALE ADMITTED FOR AMS, RESUSCITATED ARREST ANTHROPOMETRICS: HT: 64" WT: 110.5 KG BMI: 41.8 INTERVENTION: 1. HEART HEALTHY DIET RECOMMENDATIONS: 1. CONTINUE CURRENT DIET IN ORDER TO PROMOTE WEIGHT LOSS. Respectfully, RADHA CAO RD, LD [employer] and Nutrition[employer] Services [facility] cc: client file
--- NOTE | ~2016-12-29 | EKG ---
PATIENT: JACOBO JOSHI UNIT #: [id number] Ventricular Rate: 71 BPM Atrial Rate: 71 BPM P-R Interval: 158 ms QRS Duration: 100 ms Q-T Interval: 438 ms QTC Calculation(Bezet): 475 ms P [place]: 40 degrees Calculated R [place]: 26 degrees Calculated T [place]: 140 degrees Diagnosis Line: Normal sinus rhythm Diagnosis Line: Moderate voltage criteria for LVH, may be normal Diagnosis Line: variant Diagnosis Line: T wave abnormality, consider inferolateral Diagnosis Line: ischemia Diagnosis Line: Prolonged QT Diagnosis Line: Abnormal ECG Diagnosis Line: When compared with ECG of 01-JAN-2017 20:27, Diagnosis Line: (unconfirmed) Diagnosis Line: T wave inversion now evident in Inferior leads Diagnosis Line: Confirmed by TAYE JACOME MD ([id number]) on 01/02/2017 Diagnosis Line: 6:26:32 PM INTERPRETING MD: AYAZ DENT
--- NOTE | ~2016-12-29 | EKG ---
PATIENT: JACOBO JOSHI UNIT #: [id number] Ventricular Rate: 123 BPM Atrial Rate: 123 BPM P-R Interval: 150 ms QRS Duration: 104 ms Q-T Interval: 316 ms QTC Calculation(Bezet): 452 ms P [place]: 61 degrees Calculated R [place]: 68 degrees Calculated T [place]: -87 degrees Diagnosis Line: Sinus tachycardia Diagnosis Line: Possible Left atrial enlargement Diagnosis Line: ST and T wave abnormality, consider inferolateral Diagnosis Line: ischemia Diagnosis Line: Abnormal ECG Diagnosis Line: No previous ECGs available Diagnosis Line: Confirmed by TAYE JACOME MD ([id number]) on 12/29/2016 Diagnosis Line: 7:32:47 PM INTERPRETING MD: AYAZ DENT
--- NOTE | ~2016-12-29 | EKG ---
PATIENT: JACOBO JOSHI UNIT #: [id number] Ventricular Rate: 77 BPM Atrial Rate: 77 BPM P-R Interval: 164 ms QRS Duration: 106 ms Q-T Interval: 418 ms QTC Calculation(Bezet): 473 ms P [place]: 53 degrees Calculated R [place]: 46 degrees Calculated T [place]: 156 degrees Diagnosis Line: Normal sinus rhythm Diagnosis Line: Left ventricular hypertrophy Diagnosis Line: Abnormal ECG Diagnosis Line: When compared with ECG of 02-JAN-2017 16:23, Diagnosis Line: No significant change was found Diagnosis Line: Confirmed by WANG CONLEY MD ([id number]) on Diagnosis Line: 01/03/2017 8:11:42 PM INTERPRETING MD: HANNAH
[2016-12-29 09:49] LABS: POC - TROPONIN 4.07 ng/mL (<=0.05)
[2016-12-29 09:55] LABS: ARTERIAL BLD GAS O2 SATURATION 98.5 % (90.0-100.0); ARTERIAL BLOOD GAS HCO3 25.1 mmol/L; ARTERIAL BLOOD GAS MET HB 0.8 %sat (0.0-2.0); ARTERIAL BLOOD GAS PCO2 44.7 mmHg (35.0-45.0); ARTERIAL BLOOD GAS pH 7.357 (7.350-7.450)
[2016-12-29 09:57] LABS: ARTERIAL BLOOD GAS ALLEN TEST NORMAL; ARTERIAL BLOOD GAS ART SITE RIGHT RADIAL; ARTERIAL BLOOD GAS VENT MODE A/C; ARTERIAL DRAW? YES
[2016-12-29 09:58] LABS: BASOPHIL% 0.7 % (0-2.5); EOSINOPHIL# 0.1 X10e3 (0-0.7); EOSINOPHIL% 2.5 % (0.0-7.0); HEMATOCRIT 40.2 % (35.0-45.0); HEMOGLOBIN 12.9 gm/dL (12.0-16.0); LYMPHOCYTE# 3.6 X10e3 (1.0-3.5); LYMPHOCYTE% 64.2 % (17.0-45.0); MEAN CORPUSCULAR HEMOGLOBIN 28.9 PG (28-34); MEAN CORPUSCULAR HGB CONC 32.1 g/dL (30-36); MEAN PLATELET VOLUME 7.7 FL (6.5-11.5); MONOCYTE# 0.1 X10e3 (0-1.0); MONOCYTE% 1.5 % (3.0-12.0); NEUTROPHIL# 1.8 X10e3 (1.5-7.1); NEUTROPHIL% 31.1 % (40-75); PLATELET COUNT 236 X10e3 (140-420); RED BLOOD COUNT 4.47 X10e (3.90-5.30); RED CELL DISTRIBUTION WIDTH 17.7 % (11.0-15.5); WHITE BLOOD COUNT 5.7 X10e3 (4.0-10.5)
[2016-12-29 10:00] LABS: DIFF IND YES
[2016-12-29 10:05] LABS: PARTIAL THROMBOPLASTIN TIME 30.4 SECONDS (23.5-31.3); PROTHROMBIN TIME (PATIENT) 10.7 SECONDS (9.6-11.5)
[2016-12-29 10:15] LABS: ALBUMIN SERUM 3.6 g/dL (3.5-5.0); BILIRUBIN, DIRECT 0.2 mg/dL (0.0-0.2); BILIRUBIN,INDIRECT 0.6 mg/dL (0.0-0.9); BILIRUBIN,TOTAL 0.8 mg/dL (0.2-2.0); BUN/CREATININE RATIO 4.61; CALCIUM SERUM 8.7 mg/dL (8.4-10.2); CREATININE SERUM 7.8 mg/dL (0.6-1.4); GLOM FILT RATE Estimated 5.6 mL/min (>60); POTASSIUM 4.1 mmol/L (3.5-5.1); PROTEIN TOTAL SERUM 7.9 g/dL (6.0-8.3)
[2016-12-29 10:51] LABS: PLATELET ESTIMATE NORMAL (NORMAL)
[2016-12-29 10:52] LABS: ANISOCYTOSIS SL
[~2016-12-29 13:33] MED LIST: ALBUTEROL17 GM INH; CLOPIDOGREL75 MG PO; COMBIVENT U/D3 M2 INH; COZAAR100 MG PO; FAMOTIDINE PO; IMDUR-ER30 M1 PO; LEXAPRO20 MG PO; SENSIPAR60 MG PO; [UNRECOGNIZED DRUG - OTHER] EXT
[2016-12-29 15:37] LABS: POC - CKMB 44.7 ng/mL (0.0-7.9); POC - TROPONIN 7.57 ng/mL (<=0.05)
[2016-12-29 16:28] LABS: CHOLESTEROL 147 mg/dL (0-200); HDL CHOLESTEROL 36 mg/dL (35-95); LDL CHOLESTEROL 88 mg/dL (-130); LDL/HDL RATIO 2 RATIO (0-4); TRIGLYCERIDES 116 mg/dL (10-160)
[2016-12-29 16:42] LABS: %MB 10.1 % (0.0-4.0); MB 68.3 ng/ml
[2016-12-29 19:27] LABS: CHOLESTEROL 194 mg/dL (0-200); HDL CHOLESTEROL 48 mg/dL (35-95); LDL CHOLESTEROL 125 mg/dL (-130); LDL/HDL RATIO 3 RATIO (0-4); TRIGLYCERIDES 105 mg/dL (10-160)
[2016-12-29 22:56] LABS: HEMATOCRIT 34.7 % (35.0-45.0); HEMOGLOBIN 11.3 gm/dL (12.0-16.0)
[2016-12-29 23:52] LABS: %MB 10.1 % (0.0-4.0); MB 92.1 ng/ml
[2016-12-30 03:57] LABS: BASOPHIL% 0.3 % (0-2.5); EOSINOPHIL% 0.2 % (0.0-7.0); HEMATOCRIT 32.4 % (35.0-45.0); HEMOGLOBIN 10.6 gm/dL (12.0-16.0); LYMPHOCYTE# 0.8 X10e3 (1.0-3.5); LYMPHOCYTE% 9.4 % (17.0-45.0); MEAN CELL VOLUME 87.4 FL (83-96); MEAN CORPUSCULAR HEMOGLOBIN 28.6 PG (28-34); MEAN CORPUSCULAR HGB CONC 32.7 g/dL (30-36); MEAN PLATELET VOLUME 7.2 FL (6.5-11.5); MONOCYTE# 0.6 X10e3 (0-1.0); MONOCYTE% 6.7 % (3.0-12.0); NEUTROPHIL# 7.3 X10e3 (1.5-7.1); NEUTROPHIL% 83.4 % (40-75); PLATELET COUNT 166 X10e3 (140-420)
[2016-12-30 03:58] LABS: DIFF IND NO; WHITE BLOOD COUNT 8.8 X10e3 (4.0-10.5)
[2016-12-30 04:23] LABS: ARTERIAL BLOOD GAS CARBOXY HB 0.3 %sat (0.0-9.0); ARTERIAL BLOOD GAS HCO3 24.8 mmol/L; ARTERIAL BLOOD GAS MET HB 1.3 %sat (0.0-2.0); ARTERIAL BLOOD GAS pH 7.471 (7.350-7.450)
[2016-12-30 04:28] LABS: ARTERIAL BLOOD GAS ART SITE RIGHT BRACHIAL; ARTERIAL BLOOD GAS DELIVERY VENT; ARTERIAL BLOOD GAS VENT MODE AC; ARTERIAL DRAW? YES
[2016-12-30 04:30] LABS: ALBUMIN SERUM 2.9 g/dL (3.5-5.0); BILIRUBIN,TOTAL 0.7 mg/dL (0.2-2.0); BUN/CREATININE RATIO 5.31; CALCIUM SERUM 8.5 mg/dL (8.4-10.2); CREATININE SERUM 9.6 mg/dL (0.6-1.4); GLOM FILT RATE Estimated 5.3 mL/min (>60); PHOSPHOROUS 5.9 mg/dL (2.5-4.6); POTASSIUM 4.4 mmol/L (3.5-5.1); PROTEIN TOTAL SERUM 6.3 g/dL (6.0-8.3)
[2016-12-30 04:50] LABS: %MB 9.2 % (0.0-4.0); MB 69.4 ng/ml
[2016-12-30 07:56] LABS: ARTERIAL BLD GAS O2 SATURATION 97.6 % (90.0-100.0); ARTERIAL BLOOD GAS CARBOXY HB 0.1 %sat (0.0-9.0); ARTERIAL BLOOD GAS HCO3 25.1 mmol/L; ARTERIAL BLOOD GAS PCO2 40.3 mmHg (35.0-45.0); ARTERIAL BLOOD GAS pH 7.402 (7.350-7.450)
[2016-12-30 07:57] LABS: ARTERIAL BLOOD GAS ART SITE RIGHT BRACHIAL; ARTERIAL BLOOD GAS DELIVERY VENT; ARTERIAL BLOOD GAS VENT MODE CPAP; ARTERIAL DRAW? YES
[2016-12-31 04:48] LABS: BASOPHIL# 0.1 X10e3 (0-0.3); BASOPHIL% 0.7 % (0-2.5); DIFF IND NO; EOSINOPHIL# 0.4 X10e3 (0-0.7); EOSINOPHIL% 3.5 % (0.0-7.0); HEMATOCRIT 28.6 % (35.0-45.0); HEMOGLOBIN 9.2 gm/dL (12.0-16.0); LYMPHOCYTE% 8.9 % (17.0-45.0); MEAN CELL VOLUME 88.3 FL (83-96); MEAN CORPUSCULAR HEMOGLOBIN 28.3 PG (28-34); MEAN PLATELET VOLUME 7.3 FL (6.5-11.5); MONOCYTE# 0.8 X10e3 (0-1.0); MONOCYTE% 6.6 % (3.0-12.0); NEUTROPHIL# 9.4 X10e3 (1.5-7.1); NEUTROPHIL% 80.3 % (40-75); PLATELET COUNT 154 X10e3 (140-420); RED BLOOD COUNT 3.24 X10e (3.90-5.30); RED CELL DISTRIBUTION WIDTH 17.9 % (11.0-15.5); WHITE BLOOD COUNT 11.7 X10e3 (4.0-10.5)
[2016-12-31 05:11] LABS: INR 1.1; PARTIAL THROMBOPLASTIN TIME 64.1 SECONDS (23.5-31.3); PROTHROMBIN TIME (PATIENT) 11.9 SECONDS (9.6-11.5)
[2016-12-31 07:10] LABS: ALBUMIN SERUM 2.7 g/dL (3.5-5.0); BILIRUBIN,TOTAL 0.6 mg/dL (0.2-2.0); BUN/CREATININE RATIO 5.96; CALCIUM SERUM 8.2 mg/dL (8.4-10.2); CREATININE SERUM 11.4 mg/dL (0.6-1.4); GLOM FILT RATE Estimated 4.4 mL/min (>60); PROTEIN TOTAL SERUM 5.9 g/dL (6.0-8.3)
[2016-12-31 07:22] LABS: POTASSIUM 5.5 mmol/L (3.5-5.1)
[2016-12-31 16:08] LABS: BUN/CREATININE RATIO 5.55; CALCIUM SERUM 8.6 mg/dL (8.4-10.2); CREATININE SERUM 6.3 mg/dL (0.6-1.4); GLOM FILT RATE Estimated 8.6 mL/min (>60); POTASSIUM 3.7 mmol/L (3.5-5.1)
[2017-01-01 04:50] LABS: BASOPHIL% 0.3 % (0-2.5); DIFF IND NO; EOSINOPHIL# 0.4 X10e3 (0-0.7); EOSINOPHIL% 3.2 % (0.0-7.0); HEMATOCRIT 28.9 % (35.0-45.0); HEMOGLOBIN 9.2 gm/dL (12.0-16.0); LYMPHOCYTE% 8.3 % (17.0-45.0); MEAN CELL VOLUME 89.6 FL (83-96); MEAN CORPUSCULAR HEMOGLOBIN 28.4 PG (28-34); MEAN CORPUSCULAR HGB CONC 31.7 g/dL (30-36); MEAN PLATELET VOLUME 7.9 FL (6.5-11.5); MONOCYTE% 8.7 % (3.0-12.0); NEUTROPHIL# 9.4 X10e3 (1.5-7.1); NEUTROPHIL% 79.5 % (40-75); PLATELET COUNT 176 X10e3 (140-420); RED BLOOD COUNT 3.23 X10e (3.90-5.30); RED CELL DISTRIBUTION WIDTH 18.1 % (11.0-15.5); WHITE BLOOD COUNT 11.7 X10e3 (4.0-10.5)
[2017-01-01 05:06] LABS: INR 1.1; PARTIAL THROMBOPLASTIN TIME 46.9 SECONDS (23.5-31.3); PROTHROMBIN TIME (PATIENT) 11.4 SECONDS (9.6-11.5)
[2017-01-01 05:58] LABS: BUN/CREATININE RATIO 4.5; CALCIUM SERUM 8.9 mg/dL (8.4-10.2); CREATININE SERUM 7.1 mg/dL (0.6-1.4); GLOM FILT RATE Estimated 7.5 mL/min (>60); POTASSIUM 4.4 mmol/L (3.5-5.1)
[2017-01-02 04:28] LABS: BASOPHIL% 0.2 % (0-2.5); DIFF IND NO; EOSINOPHIL# 0.5 X10e3 (0-0.7); HEMATOCRIT 27.1 % (35.0-45.0); HEMOGLOBIN 8.7 gm/dL (12.0-16.0); LYMPHOCYTE# 0.8 X10e3 (1.0-3.5); LYMPHOCYTE% 6.2 % (17.0-45.0); MEAN CELL VOLUME 89.2 FL (83-96); MEAN CORPUSCULAR HEMOGLOBIN 28.5 PG (28-34); MEAN PLATELET VOLUME 7.4 FL (6.5-11.5); MONOCYTE% 8.2 % (3.0-12.0); NEUTROPHIL# 10.4 X10e3 (1.5-7.1); NEUTROPHIL% 81.4 % (40-75); PLATELET COUNT 222 X10e3 (140-420); RED BLOOD COUNT 3.04 X10e (3.90-5.30); RED CELL DISTRIBUTION WIDTH 18.1 % (11.0-15.5); WHITE BLOOD COUNT 12.8 X10e3 (4.0-10.5)
[2017-01-02 04:51] LABS: ALBUMIN SERUM 2.8 g/dL (3.5-5.0); BILIRUBIN,TOTAL 0.6 mg/dL (0.2-2.0); CALCIUM SERUM 8.4 mg/dL (8.4-10.2); POTASSIUM 4.6 mmol/L (3.5-5.1); PROTEIN TOTAL SERUM 6.9 g/dL (6.0-8.3)
[2017-01-02 04:52] LABS: BUN/CREATININE RATIO 4.61; CREATININE SERUM 9.1 mg/dL (0.6-1.4); GLOM FILT RATE Estimated 5.7 mL/min (>60)
[2017-01-02 16:38] LABS: ANGIO %MB 3.6 % (0.0-4.0); ANGIO MB 15.3 ng/ml
[2017-01-03 00:48] LABS: ANGIO %MB 3.2 % (0.0-4.0); ANGIO MB 12.7 ng/ml
[2017-01-03 05:13] LABS: BASOPHIL% 0.3 % (0-2.5); DIFF IND YES; EOSINOPHIL# 0.4 X10e3 (0-0.7); EOSINOPHIL% 4.7 % (0.0-7.0); HEMOGLOBIN 7.7 gm/dL (12.0-16.0); LYMPHOCYTE# 0.4 X10e3 (1.0-3.5); LYMPHOCYTE% 5.1 % (17.0-45.0); MEAN CELL VOLUME 90.3 FL (83-96); MEAN CORPUSCULAR HEMOGLOBIN 28.9 PG (28-34); MEAN PLATELET VOLUME 7.1 FL (6.5-11.5); MONOCYTE# 0.7 X10e3 (0-1.0); MONOCYTE% 8.6 % (3.0-12.0); NEUTROPHIL% 81.3 % (40-75); PLATELET COUNT 217 X10e3 (140-420); RED BLOOD COUNT 2.66 X10e (3.90-5.30); RED CELL DISTRIBUTION WIDTH 18.2 % (11.0-15.5); WHITE BLOOD COUNT 8.6 X10e3 (4.0-10.5)
[2017-01-03 05:27] LABS: ANISOCYTOSIS SL; HYPOCHROMIA SL; PLATELET ESTIMATE NORMAL (NORMAL); POIKILOCYTOSIS SL
[2017-01-03 05:56] LABS: BUN/CREATININE RATIO 4.03; CALCIUM SERUM 8.5 mg/dL (8.4-10.2); CREATININE SERUM 5.7 mg/dL (0.6-1.4); GLOM FILT RATE Estimated 9.7 mL/min (>60); MAGNESIUM 2.1 mg/dL (1.6-3.0); POTASSIUM 4.3 mmol/L (3.5-5.1)
[2017-01-04 07:06] LABS: BASOPHIL% 0.3 % (0-2.5); DIFF IND NO; EOSINOPHIL# 0.5 X10e3 (0-0.7); EOSINOPHIL% 6.6 % (0.0-7.0); HEMATOCRIT 23.8 % (35.0-45.0); HEMOGLOBIN 7.7 gm/dL (12.0-16.0); LYMPHOCYTE# 0.5 X10e3 (1.0-3.5); LYMPHOCYTE% 7.7 % (17.0-45.0); MEAN CELL VOLUME 89.4 FL (83-96); MEAN CORPUSCULAR HEMOGLOBIN 28.9 PG (28-34); MEAN CORPUSCULAR HGB CONC 32.4 g/dL (30-36); MEAN PLATELET VOLUME 6.5 FL (6.5-11.5); MONOCYTE# 0.8 X10e3 (0-1.0); MONOCYTE% 11.2 % (3.0-12.0); NEUTROPHIL# 5.1 X10e3 (1.5-7.1); NEUTROPHIL% 74.2 % (40-75); PLATELET COUNT 248 X10e3 (140-420); RED BLOOD COUNT 2.66 X10e (3.90-5.30); RED CELL DISTRIBUTION WIDTH 17.6 % (11.0-15.5); WHITE BLOOD COUNT 6.9 X10e3 (4.0-10.5)
[2017-01-04 07:42] LABS: ALBUMIN SERUM 2.5 g/dL (3.5-5.0); BILIRUBIN,TOTAL 0.4 mg/dL (0.2-2.0); BUN/CREATININE RATIO 4.39; CALCIUM SERUM 8.6 mg/dL (8.4-10.2); CREATININE SERUM 8.2 mg/dL (0.6-1.4); GLOM FILT RATE Estimated 6.4 mL/min (>60); POTASSIUM 4.4 mmol/L (3.5-5.1); PROTEIN TOTAL SERUM 6.5 g/dL (6.0-8.3)
== END 2017-01-05 17:34 | DRG 250 ==
LOC: CED 13:33 → CEDOF 14:05 → CICCU3 22:23 → C5B 01-03 14:19
PROVIDERS: Family Medicine; Internal Medicine; Internal Medicine Cardiovascular Disease; Internal Medicine Nephrology; Internal Medicine Pulmonary Disease; Student in an Organized Health Care Education/Training Program
PROC: 05H333Z Insertion of Infusion Device into Right Innominate Vein, Percutaneous Approach (ICD-10-PCS; principal; 2016-12-29)
PROC: 5A1945Z Respiratory Ventilation, 24-96 Consecutive Hours (ICD-10-PCS; 2016-12-29)
PROC: B54MZZA Ultrasonography of Right Upper Extremity Veins, Guidance (ICD-10-PCS; 2016-12-29)
PROC: B24BYZZ Ultrasonography of Heart with Aorta using Other Contrast (ICD-10-PCS; 2016-12-29)
PROC: 5A1D60Z (ICD-10-PCS; 2016-12-31)
PROC: 4A023N7 Measurement of Cardiac Sampling and Pressure, Left Heart, Percutaneous Approach (ICD-10-PCS; 2017-01-01)
PROC: B213YZZ Fluoroscopy of Multiple Coronary Artery Bypass Grafts using Other Contrast (ICD-10-PCS; 2017-01-01)
PROC: B215YZZ Fluoroscopy of Left Heart using Other Contrast (ICD-10-PCS; 2017-01-01)
PROC: 02703ZZ Dilation of Coronary Artery, One Artery, Percutaneous Approach (ICD-10-PCS; 2017-01-02)
PROC: 30233N1 Transfusion of Nonautologous Red Blood Cells into Peripheral Vein, Percutaneous Approach (ICD-10-PCS; 2017-01-05)
DX: I21.4 Non-ST elevation (NSTEMI) myocardial infarction (principal); I49.01 Ventricular fibrillation; J96.01 Acute respiratory failure with hypoxia; R57.0 Cardiogenic shock; I50.33 Acute on chronic diastolic (congestive) heart failure; N18.6 End stage renal disease; J18.9 Pneumonia, unspecified organism; B37.0 Candidal stomatitis; I13.2 Hypertensive heart and chronic kidney disease with heart failure and with stage 5 chronic kidney disease, or end stage renal disease; I25.810 Atherosclerosis of coronary artery bypass graft(s) without angina pectoris; Z68.41 Body mass index [BMI] 40.0-44.9, adult; I95.9 Hypotension, unspecified; E66.01 Morbid (severe) obesity due to excess calories; Z99.2 Dependence on renal dialysis; J44.9 Chronic obstructive pulmonary disease, unspecified; G25.81 Restless legs syndrome; F32.9 Major depressive disorder, single episode, unspecified; R74.0 Nonspecific elevation of levels of transaminase and lactic acid dehydrogenase [LDH]; E78.5 Hyperlipidemia, unspecified; E11.9 Type 2 diabetes mellitus without complications; Z79.84 Long term (current) use of oral hypoglycemic drugs; I35.1 Nonrheumatic aortic (valve) insufficiency; G47.33 Obstructive sleep apnea (adult) (pediatric); K21.9 Gastro-esophageal reflux disease without esophagitis; Z90.49 Acquired absence of other specified parts of digestive tract; Z90.710 Acquired absence of both cervix and uterus; Z98.51 Tubal ligation status; Z88.2 Allergy status to sulfonamides; Z91.040 Latex allergy status; D63.1 Anemia in chronic kidney disease; E16.2 Hypoglycemia, unspecified; I25.10 Atherosclerotic heart disease of native coronary artery without angina pectoris
CPT/HCPCS: 31500; 36415; 36600; 51702; 70450; 71010; 74000; 74176; 80048; 80053; 80061; 80076; 80200; 80202; 82308; 82533; 82550; 82553; 82803; 82947; 83605; 83735; 84100; 84443; 84484; 85014; 85018; 85025; 85347; 85610; 85730; 86850; 86900; 86901; 86923; 87040; 87070; 87205; 92610; 93005; 93306; 94002; 94003; 94640; 94760; 94761; 97110; 97162; 97166; 97530; 97535; 99291; C1725; C1769; C1887; C1894; C9113; G0480; G8978-GP; G8979-GP; G8987-GO; G8988-GO; G8996-GN; G8997-GN; J0282; J0330; J0360; J1644; J2250; J2270; J2370; J2543; J3010; J3260; J3370; J3490; P9016; Q4081